=== PATIENT | female | born 1960 | race Caucasian/White ===

== ENCOUNTER 2016-12-19 13:56 | Outpatient (CLI) | payer OTHER | END 2016-12-19 13:57 | disposition home or self-care (01) | DX: D72.819 Decreased white blood cell count, unspecified (principal) ==

== ENCOUNTER 2016-12-21 14:24 | Outpatient (CLI) | payer OTHER | END 2016-12-21 14:25 | disposition home or self-care (01) | DX: D72.819 Decreased white blood cell count, unspecified (principal); E53.8 Deficiency of other specified B group vitamins ==

== ENCOUNTER 2016-12-26 10:05 | Outpatient (CLI) | payer OTHER ==
--- NOTE | 2016-12-28 14:41 | Mammography Report ---
DIGITAL SCREENING MAMMOGRAM: 12/26/2016 CLINICAL INDICATION: A 56-year-old nulliparous patient with family history of breast cancer for scre ening. COMPARISON: 09/2014, 08/2013, 03/2011, 03/2010, 03/2009, 02/2008. TECHNIQUE: Routine CC and MLO projections were obtained of the breasts. FINDINGS: The breasts again demonstrate scattered fibroglandular densities bilaterally. No suspicio us masses, clustered microcalcifications, or regions of architectural distortion are identified. IMPRESSION: BENIGN FINDINGS. RECOMMENDATION: Routine annual screening unless otherwise clinically indicated. BI-RADS category 2, benign findings. STANDARD QUALIFYING STATEMENTS 1. This examination was reviewed with the aid of Computer-Aided Detection (CAD). 2. A negative or benign imaging report should not delay biopsy if clinically suspicious findings are present. Consider surgical consultation if warranted. More than 5% of cancers are not identified by i maging. 3. Dense breasts may obscure an underlying neoplasm. JOB #: [id number] EXT JOB #:[id number]
== END 2016-12-26 10:06 | disposition home or self-care (01) ==
LOC: DI 10:05
PROVIDERS: ATTEND Internal Medicine
DX: Z12.31 Encounter for screening mammogram for malignant neoplasm of breast (principal); Z80.3 Family history of malignant neoplasm of breast
CPT/HCPCS: 77067

== ENCOUNTER 2018-01-09 11:29 | Outpatient (CLI) | payer OTHER ==
--- NOTE | 2018-01-10 13:48 | Mammography Report ---
DIGITAL SCREENING MAMMOGRAM: 01/09/2018 CLINICAL INDICATION: A 57-year-old nulliparous patient with family history of breast cancer for screening. COMPARISON: 12/2016, 09/2014, 08/2013, 03/2011, 03/2010. TECHNIQUE: Routine CC and MLO projections were obtained of the breasts. FINDINGS: The breasts again demonstrate scattered fibroglandular densities bilaterally. Asymmetric parenchyma in the left outer posterior breast is stable. No suspicious masses, clustered microcalcifications, or regions of architectural distortion are identified. IMPRESSION: BENIGN FINDINGS. RECOMMENDATION: Routine annual screening unless otherwise clinically indicated. BI-RADS CATEGORY 2 - BENIGN FINDINGS. STANDARD QUALIFYING STATEMENTS: 1. This examination was reviewed with the aid of Computer-Aided Detection (CAD). 2. A negative or benign imaging report should not delay biopsy if clinically suspicious findings are present. Consider surgical consultation if warranted. More than 5% of cancers are not identified by imaging. 3. Dense breasts may obscure an underlying neoplasm. TD: 01/10/2018 13:41
== END 2018-01-09 11:30 | disposition home or self-care (01) ==
LOC: DI 11:29
PROVIDERS: ATTEND Internal Medicine
DX: Z12.31 Encounter for screening mammogram for malignant neoplasm of breast (principal); Z80.3 Family history of malignant neoplasm of breast
CPT/HCPCS: 77067

== ENCOUNTER 2019-01-31 10:53 | Outpatient (CLI) | payer OTHER ==
--- NOTE | 2019-01-31 11:40 | Mammography Report ---
Reason: ANNUAL SCREENING Procedure Date: 01/31/2019 Accession Number: [id number] / [id number] Procedure: [facility] - Screening Mammo Dig Bilat CPT Code: FULL RESULT: EXAM: Screening Mammo Dig Bilat DATE: 01/31/2019 11:22 AM CLINICAL HISTORY: Screening TECHNIQUE: (B) - Bilateral CC and MLO views were obtained. COMPARISON: 01/09/2018, 12/26/2016 PARENCHYMAL PATTERN: (A) - The breasts demonstrate scattered fibroglandular densities bilaterally. FINDINGS: There are no suspicious masses, calcifications, or areas of distortion. IMPRESSION: Negative examination. BI-RADS category 1. RECOMMENDATION: (ANNUAL) - Recommend routine annual screening mammography. BI-RADS CATEGORY: (1) - Negative. STANDARD QUALIFYING STATEMENTS: 1. This examination was not reviewed with the aid of Computer-Aided Detection (CAD). 2. A negative or benign imaging report should not preclude biopsy if clinically suspicious findings are present. 3. Dense breasts may obscure an underlying neoplasm. 4. This examination was reviewed without the aid of 3D breast imaging (tomosynthesis).
== END 2019-01-31 10:54 | disposition home or self-care (01) ==
LOC: DI 10:53
DX: Z12.31 Encounter for screening mammogram for malignant neoplasm of breast (principal)
CPT/HCPCS: 77067

== ENCOUNTER 2019-11-15 12:42 | Emergency (ER) | payer OTHER ==
[2019-11-15 12:55] VITALS: BP 152/64
--- NOTE | 2019-11-15 13:20 | ED Physician Documentation ---
History of Present Illness - Stated complaint Stated Complaint: MOUTH PX,SWELLING - Chief complaint Chief Complaint: Heent - History obtained from History obtained from: Patient - History of Present Illness Timing: How many days ago (2) Pain level max: 2 Pain level now: 2 - Additonal information Additional information: 59-year-old female states she was eating popcorn a few days ago when a kernel became lodged in her back left upper molar. No fever. No cough. States she has felt some facial swelling. She tried to see her dentist, but because of the coronavirus, he is only open 1 day/week and could not see her. She called her primary care doctor who recommended she come here for evaluation. No fevers. Nothing makes it better or worse. She states she was able to remove the kernel. Review of Systems Constitutional: denies: Fever, Chills Respiratory: denies: Cough GI: denies: Vomiting, Diarrhea Skin: denies: Rash PD PAST MEDICAL HISTORY - Past Medical History Past Medical History: No - Present Medications Home Medications: Ambulatory Orders Medication Instructions Recorded Confirmed Clindamycin HCl [Clindamycin 300MG 300 mg PO Q6H #40 capsule 11/15/19 CAP] - Allergies Allergies/Adverse Reactions: Allergies Allergy/AdvReac Type Severity Reaction Status Date / Time Penicillins Allergy Anaphylaxis Verified 11/15/19 12:50 - Living Situation Living Arrangement: reports: At home - Social History Does the pt smoke?: No Smoking Status: Never smoker Does the pt have substance abuse?: No - Family History Family history: reports: Non contributory PD ED PE NORMAL - Vitals Vital signs reviewed: Yes - General General: Alert and oriented X 3, No acute distress, Well developed/nourished - HEENT HEENT: Moist mucous membranes, Other (Mild swelling to the upper left gingiva. No abscess. No foreign body visible. Otherwise normal exam of the oropharynx and cheek.) - Neck Neck: Supple, no meningeal sign - Derm Derm: Warm and dry - Neuro Neuro: Alert and oriented X 3 Results - Vitals Vitals: Vital Signs - 24 hr 11/15/19 12:51 Temperature 36.8 C Heart Rate 69 Respiratory 14 Rate Blood Pressure 152/64 H O2 Saturation 98 Oxygen O2 Source Room air PD MEDICAL DECISION MAKING - ED course Complexity details: considered differential, d/w patient ED course: Patient with what appears to be dental caries. We will start her on antibiotics. We will have her follow-up with her dentist for further care. She is penicillin allergic, causes a rash. Patient counseled regarding signs and symptoms for which I believe and urgent re-evaluation would be necessary. Patient with good understanding of and agreement to plan and is comfortable going home at this time This document was made in part using voice recognition software. While efforts are made to proofread this document, sound alike and grammatical errors may occur. Departure - Departure Disposition: 01 Home, Self Care Clinical Impression: Pain due to dental caries Condition: Good Instructions: ED Tooth Pain Follow-Up: your,dentist within 1 week [Other] Prescriptions: Clindamycin HCl [Clindamycin 300MG CAP] 300 mg PO Q6H #40 capsule Comments: Take all antibiotics until gone. Return if you worsen. Follow-up with your dentist for further care. You can also do salt water rinses at home, this will help with swelling.
== END 2019-11-15 13:22 | disposition home or self-care (01) ==
LOC: ED 12:42
DX: K02.9 Dental caries, unspecified (principal)
CPT/HCPCS: 99282; 99284

== ENCOUNTER 2019-12-06 19:40 | Emergency (ER) | payer OTHER ==
[2019-12-06 19:48] VITALS: BP 142/89
--- NOTE | 2019-12-06 20:11 | ED Physician Documentation ---
PD HPI Fall - Stated complaint Stated Complaint: NOSE INJ - Chief complaint Chief Complaint: Heent - History obtained from History obtained from: Patient (Her dog ran into her and she basically face planted. No loss of consciousness or headache. Only pain is her nose and she has a visible deformity there.) Review of Systems Constitutional: reports: Reviewed and negative Nose: denies: Rhinorrhea / runny nose, Epistaxis Cardiac: reports: Reviewed and negative PD PAST MEDICAL HISTORY - Present Medications Home Medications: Ambulatory Orders Medication Instructions Recorded Confirmed Clindamycin HCl [Clindamycin 300MG 300 mg PO Q6H #40 capsule 11/15/19 CAP] Cephalexin [Keflex] 500 mg PO Q6H #28 capsule 12/06/19 - Allergies Allergies/Adverse Reactions: Allergies Allergy/AdvReac Type Severity Reaction Status Date / Time Penicillins Allergy Anaphylaxis Verified 12/06/19 19:48 - Social History Does the pt smoke?: No Smoking Status: Never smoker Does the pt have substance abuse?: No PD ED PE NORMAL - Vitals Vital signs reviewed: Yes - General General: Alert and oriented X 3, No acute distress - HEENT HEENT: Other (She has an obvious nasal fracture with leftward deviation. No septal hematoma. Septum appears fairly normal. No other facial bony tenderness. No evidence of entrapment.) - Neck Neck: Supple, no meningeal sign, No bony TTP - Neuro Neuro: Alert and oriented X 3, Normal speech Results - Vitals Vitals: Vital Signs - 24 hr 12/06/19 19:44 Temperature 36.5 C Heart Rate 70 Respiratory 18 Rate Blood Pressure 142/89 H O2 Saturation 97 Oxygen O2 Source Room air Procedures - Reduction Body part reduced: Other (nasal) Fracture or dislocation: Fracture dislocation Anesthesia: Other (none) Reduction aftercare: Alignment improved PD MEDICAL DECISION MAKING - ED course ED course: On initial evaluation I recommended CT imaging and urgent referral to [facility] for f ixation. Patient refused. She wanted to take much more conservative course including having me reduce the nasal fracture. I discussed with her that I have never in my experience reduce the nasal fracture. And this was no longer considered standard of care for emergency physicians. She was insistent. Did not want CT imaging, and did not want to follow-up for this. A manual reduction of the nasal nose was done with visible central alignment and she tolerated this well and then 4.5 cm anterior Rhino Rocket's were inserted on either side and inflated. Departure - Departure Disposition: 01 Home, Self Care Clinical Impression: Nasal fracture Qualifiers: Encounter type: initial encounter Fracture type: closed Qualified Code(s): S02.2XXA - Fracture of nasal bones, initial encounter for closed fracture Condition: Good Record reviewed to determine appropriate education?: Yes Instructions: ED Fx Nasal Conf W X Ray Follow-Up: Elieser Lopez DDS [Provider Admit Priv/Credential] - Prescriptions: Cephalexin [Keflex] 500 mg PO Q6H #28 capsule Comments: Ideally should follow-up with the facial surgeon on Sunday, and you will need the packing removed in 5+ days. Return for new or worsening symptoms.
[2019-12-06] MEDS: cephALEXin 250 MG CAPSULE PO STA (20:15)
== END 2019-12-06 20:26 | disposition home or self-care (01) ==
LOC: ED 19:40
DX: S02.2XXA Fracture of nasal bones, initial encounter for closed fracture (principal); W54.1XXA Struck by dog, initial encounter; W18.39XA Other fall on same level, initial encounter
CPT/HCPCS: 99282; 99284; A9270

== ENCOUNTER 2020-06-09 16:06 | Emergency (ER) | payer OTHER ==
--- NOTE | 2020-06-09 16:30 | ED Physician Documentation ---
PD HPI UPPER EXT INJURY - Stated complaint Stated Complaint: RT HAND INJ - Chief complaint Chief Complaint: Ext Problem - History obtained from History obtained from: Patient - Additonal information Additional information: Without specific injury of over about 4 days she has developed worsening right hand pain that seems focused over the fifth MCP with increasing swelling of that area. No fevers or chills. Review of Systems Ten Systems: 10 systems reviewed and negative Constitutional: reports: Reviewed and negative Nose: reports: Reviewed and negative Throat: reports: Reviewed and negative Cardiac: reports: Reviewed and negative PD PAST MEDICAL HISTORY - Present Medications Home Medications: Ambulatory Orders Medication Instructions Recorded Confirmed Clindamycin HCl [Clindamycin 300MG 300 mg PO Q6H #40 capsule 11/15/19 CAP] Cephalexin [Keflex] 500 mg PO Q6H #28 capsule 12/06/19 Cephalexin [Keflex] 500 mg PO Q6H #28 capsule 06/09/20 - Allergies Allergies/Adverse Reactions: Allergies Allergy/AdvReac Type Severity Reaction Status Date / Time Penicillins Allergy Anaphylaxis Verified 12/06/19 19:48 - Social History Does the pt smoke?: No Smoking Status: Never smoker Does the pt have substance abuse?: No PD ED PE NORMAL - Vitals Vital signs reviewed: Yes - General General: Alert and oriented X 3, No acute distress - Extremities Extremities: Other (Significant tenderness and slight warmth around the fifth MCP, both dorsally and on the palmar side. She is holding it slightly flexed and the fourth and fifth digits are swollen, fifth worse than fourth.) - Neuro Neuro: Alert and oriented X 3, Normal speech Results - Vitals Vitals: Vital Signs - 24 hr 06/09/20 06/09/20 16:10 17:40 Temperature 36.6 C Heart Rate 63 72 Respiratory 18 14 Rate Blood Pressure 150/91 H 148/88 H O2 Saturation 100 100 Oxygen O2 Source Room air - Labs Labs: Laboratory Tests 06/09/20 06/09/20 06/09/20 16:54 16:54 16:54 WBC 4.5 L RBC 4.12 L Hgb 13.6 Hct 41.6 MCV 101.0 H MCH 33.0 H MCHC 32.7 RDW 12.2 Plt Count 171 MPV 9.3 Neut # (Auto) 2.9 Lymph # (Auto) 1.0 L Beaver # (Auto) 0.5 Eos # (Auto) 0.1 Baso # (Auto) 0.0 Absolute Nucleated RBC 0.00 Nucleated RBC % 0.0 ESR 5 Sodium 135 Potassium 4.0 Chloride 99 L Carbon Dioxide 25 Anion Gap 11.0 BUN 18 Creatinine 0.6 Estimated GFR (MDRD) 102 Glucose 104 H Calcium 9.6 PD MEDICAL DECISION MAKING - ED course ED course: 59-year-old woman with atraumatic right hand pain, the examination is concerning for an early case of flexor tenosynovitis. Case was discussed by phone with the orthopedist on-call, Dr. Fly Roberto. For per my description he felt it was probably fairly early and recommended antibiotics and he will see her tomorrow morning in the office. Departure - Departure Disposition: 01 Home, Self Care Clinical Impression: Suppurative tenosynovitis of flexor tendon of right hand Condition: Good Record reviewed to determine appropriate education?: Yes Instructions: Infectious Tenosynovitis Follow-Up: Fly Recio MD [Provider Admit Priv/Credential] - Tomorrow (CALL AT 8AM) Prescriptions: Cephalexin [Keflex] 500 mg PO Q6H #28 capsule Comments: As discussed, the examination today is concerning for an early case of tenosynovitis of the hand. You should return immediately if worsening, but the orthopedic surgeon would like to see you tomorrow in follow-up for recheck, call his office listed on this form at 8 AM. Elevate is much as possible. Discharge Date/Time: 06/09/20 17:40
--- NOTE | 2020-06-09 16:49 | XRAY Report ---
PROCEDURE: Hand 3 View RT INDICATIONS: hand pain TECHNIQUE: 3 views of the hand(s) acquired. COMPARISON: None FINDINGS: Bones: No fractures or dislocations. No suspicious bony lesions. Soft tissues: No suspicious soft tissue calcifications. IMPRESSION: No gross acute right hand fracture or dislocation. Reviewed by: Anthony Hidalgo MD on 06/09/2020 3:48 PM [facility] Approved by: Anthony Hidalgo MD on 06/09/2020 3:48 PM [facility]DT Station ID: [id number]
[2020-06-09 16:59] LABS: BASOPHILS % (AUTO) 0.7 %; EOSINOPHILS # (AUTO) 0.1 10^3/uL (0.0-0.7); EOSINOPHILS % (AUTO) 1.1 %; HGB - HEMOGLOBIN 13.6 g/dL (12.0-16.0); LYMPHOCYTES % (AUTO) 21.5 %; MEAN CORPUSCULAR HGB CONC 32.7 g/dL (32.0-36.0); MEAN PLATELET VOLUME 9.3 fL (7.9-10.8); MONOCYTES # (AUTO) 0.5 10^3/uL (0.0-1.0); MONOCYTES % (AUTO) 11.5 %; NEUTROPHILS # (AUTO) 2.9 10^3/uL (1.5-6.6); PLT - PLATELET COUNT 171 10^3/uL (130-450); RED BLOOD COUNT 4.12 10^6/uL (4.20-5.40); RED CELL DISTRIBUTION WIDTH 12.2 % (12.0-15.0); WHITE BLOOD COUNT 4.5 x10^3/uL (4.8-10.8)
[2020-06-09 17:14] LABS: BUN - BLOOD UREA NITROGEN 18 mg/dL (6-20); CALCIUM 9.6 mg/dL (8.5-10.3); CARBON DIOXIDE - CO2 25 mmol/L (21-32); CHLORIDE 99 mmol/L (101-111); CREATININE 0.6 mg/dL (0.4-1.0); GLUCOSE 104 mg/dL (70-100); SODIUM 135 mmol/L (135-145)
[2020-06-09] MEDS ORDERED: ceFAZolin 1 GM VIAL IM STA (17:24)
[2020-06-09 17:40] VITALS: BP 148/88
[2020-06-09 19:33] LABS: CRP - C-REACTIVE PROTEIN < 1.0 mg/dL (0-1.0)
== END 2020-06-09 17:40 | disposition home or self-care (01) ==
LOC: ED 16:06
DX: M65.841 Other synovitis and tenosynovitis, right hand (principal)
CPT/HCPCS: 36415; 80048; 85025; 85651; 86140; 96372; 99282; 99284

== ENCOUNTER 2020-06-11 13:44 | Outpatient (CLI) | payer OTHER | END 2020-06-11 13:45 | disposition EMS.NT | LOC: EMS 13:44 | PROVIDERS: ATTEND Surgery | DX: R20.2 Paresthesia of skin (principal); R22.0 Localized swelling, mass and lump, head ==

== ENCOUNTER 2020-06-11 14:02 | Emergency (ER) | payer OTHER ==
[2020-06-11] MEDS ORDERED: predniSONE 20 MG TABLET PO STA (14:12)
--- NOTE | 2020-06-11 15:57 | ED Physician Documentation ---
History of Present Illness - Stated complaint Stated Complaint: TOUNGUE SWELLING - Chief complaint Chief Complaint: Allergic Rx - History obtained from History obtained from: Patient - History of Present Illness Timing: Today Pain level max: 0 Pain level now: 0 - Additonal information Additional information: Patient is a 59-year-old female who presents to the emergency department with tongue swelling tonight. She is currently on Keflex for tenosynovitis of the right hand, states it has significantly decreased in size and appears to be improving. She is also on lisinopril. No difficulty swallowing or speaking. No rash. No itching. She took Benadryl prior to arrival Review of Systems Constitutional: denies: Fever, Chills Throat: denies: Sore throat Respiratory: denies: Cough GI: denies: Nausea, Vomiting, Diarrhea PD PAST MEDICAL HISTORY - Past Medical History Past Medical History: Yes Cardiovascular: Hypertension - Past Surgical History Past Surgical History: Yes HEENT: Tonsil/Adenoidectomy - Present Medications Home Medications: Ambulatory Orders Medication Instructions Recorded Confirmed Cephalexin [Keflex] 500 mg PO Q6H #28 capsule 12/06/19 Clindamycin HCl [Clindamycin 300MG 300 mg PO Q6H #28 capsule 06/11/20 CAP] predniSONE [Prednisone] 40 mg PO DAILY #10 tablet 06/11/20 - Allergies Allergies/Adverse Reactions: Allergies Allergy/AdvReac Type Severity Reaction Status Date / Time Penicillins Allergy Anaphylaxis Verified 12/06/19 19:48 - Social History Does the pt smoke?: No Smoking Status: Never smoker Does the pt drink ETOH?: Yes Does the pt have substance abuse?: No - Immunizations Immunizations are current?: Yes - POLST Patient has POLST: No PD ED PE NORMAL - Vitals Vital signs reviewed: Yes - General General: Alert and oriented X 3, No acute distress - HEENT HEENT: Moist mucous membranes, Other (Normal phonation. No trismus. Mild swelling to the right half of the tongue. No swelling of the lips. No stridor.) - Neck Neck: Supple, no meningeal sign - Cardiac Cardiac: RRR - Respiratory Respiratory: No respiratory distress, Clear bilaterally - Abdomen Abdomen: Soft, Non tender, Non distended - Derm Derm: Warm and dry, No rash - Extremities Extremities: No edema - Neuro Neuro: Alert and oriented X 3 - Psych Psych: Normal mood, Normal affect Results - Vitals Vitals: Vital Signs - 24 hr 06/11/20 06/11/20 06/11/20 14:07 14:40 15:13 Temperature 36.0 C L 36.3 C L Heart Rate 63 61 63 Respiratory 16 16 17 Rate Blood Pressure 159/83 H 155/86 H 143/86 H O2 Saturation 99 97 97 06/11/20 16:02 Temperature Heart Rate 75 Respiratory 16 Rate Blood Pressure 149/97 H O2 Saturation 100 Oxygen O2 Source Room air PD MEDICAL DECISION MAKING - ED course Complexity details: re-evaluated patient, considered differential, d/w patient, d/w family ED course: Patient with what appears to be angioedema, likely secondary to lisinopril use, but could be due to Keflex. Swelling nearly resolved in the emergency department after prednisone administration. Will keep her on prednisone at home, stop the lisinopril and change the Keflex to a different antibiotic. Her hand appears to be significantly improved as well. Minimal swelling. Using the hand freely. I did recommend that we remove her rings from the right hand, patient adamantly refuses this. She does understand that if the swelling worsens again, the finger could be lost due to lack of blood flow. Patient accepts this risk. Patient counseled regarding signs and symptoms for which I believe and urgent re-evaluation would be necessary. Patient with good understanding of and agreement to plan and is comfortable going home at this time This document was made in part using voice recognition software. While efforts are made to proofread this document, sound alike and grammatical errors may occur. Departure - Departure Disposition: 01 Home, Self Care Clinical Impression: Suppurative tenosynovitis of flexor tendon of right hand Angioedema Qualifiers: Encounter type: initial encounter Qualified Code(s): T78.3XXA - Angioneurotic edema, initial encounter Condition: Good Instructions: ED Angioedema Follow-Up: Felicitas Tejada ARNP [Primary Care Provider] - Within 1 week Prescriptions: Clindamycin HCl [Clindamycin 300MG CAP] 300 mg PO Q6H #28 capsule predniSONE [Prednisone] 40 mg PO DAILY #10 tablet Comments: We will have you stop the Keflex and stop your lisinopril. This is most likely related to the lisinopril, but could be related to the Keflex as well. We will start you on steroids for the next several days as well. Follow-up with your doctor for repeat evaluation within 1 week. Return if you worsen Discharge Date/Time: 06/11/20 16:05
[2020-06-11 16:03] VITALS: BP 149/97
== END 2020-06-11 16:05 | disposition home or self-care (01) ==
LOC: ED 14:02
DX: T78.3XXA Angioneurotic edema, initial encounter (principal); X58.XXXA Exposure to other specified factors, initial encounter; M65.841 Other synovitis and tenosynovitis, right hand; I10 Essential (primary) hypertension
CPT/HCPCS: 99282; 99284; J7512

== ENCOUNTER 2020-06-19 11:22 | Emergency (ER) | payer OTHER ==
[2020-06-19 11:36] VITALS: BP 158/87
--- NOTE | 2020-06-19 11:40 | ED Physician Documentation ---
PD HPI HEADACHE - Stated complaint Stated Complaint: HIGH BP - Chief complaint Chief Complaint: General - History obtained from History obtained from: Patient - History of Present Illness Timing - onset: How many days ago (5-6 days of noting Her blood pressure being elevated approximately 1 60-1 80 systolic. She had been seen for angioedema presumed related to lisinopril and has been off blood pressure medicines for 2 weeks. Noting blood pressure elevated the last week. Minimal occasional headache. Normal vision.) Timing - onset during: Light activity Timing - duration: Days (several) Timing - details: Gradual onset, Still present, Waxing and waning Worst headache ever?: No: Worst headache ever? Location: Global Quality: Other (minimal throbbinb) Associated symptoms: No: Fever, Nausea Contributing factors: Recent illness (Seen 2 weeks ago for angioedema and had her lisinopril stopped. She states her tongue in oral swelling is improved and not recurred.) Review of Systems Constitutional: denies: Fever, Chills Nose: denies: Rhinorrhea / runny nose, Congestion Throat: denies: Sore throat Respiratory: denies: Cough Neurologic: denies: Focal weakness, Numbness, Near syncope PD PAST MEDICAL HISTORY - Past Medical History Cardiovascular: Hypertension - Past Surgical History Past Surgical History: Yes HEENT: Tonsil/Adenoidectomy - Present Medications Home Medications: Ambulatory Orders Medication Instructions Recorded Confirmed amLODIPine [Norvasc] 5 mg PO DAILY #30 tablet 06/19/20 - Allergies Allergies/Adverse Reactions: Allergies Allergy/AdvReac Type Severity Reaction Status Date / Time lisinopril Allergy Edema Verified 06/19/20 11:36 Penicillins Allergy Anaphylaxis Verified 12/06/19 19:48 - Social History Does the pt smoke?: No Smoking Status: Never smoker Does the pt drink ETOH?: Yes Does the pt have substance abuse?: No - Immunizations Immunizations are current?: Yes - POLST Patient has POLST: No PD ED PE NORMAL - Vitals Vital signs reviewed: Yes - General General: Alert and oriented X 3, No acute distress, Well developed/nourished - Cardiac Cardiac: RRR, No murmur - Respiratory Respiratory: Clear bilaterally - Extremities Extremities: No edema, No calf tenderness / cord - Neuro Neuro: Alert and oriented X 3, No motor deficit, Normal speech Results - Vitals Vitals: Vital Signs - 24 hr 06/19/20 11:29 Temperature 36.7 C Heart Rate 81 Respiratory 18 Rate Blood Pressure 158/87 H O2 Saturation 100 Oxygen O2 Source Room air PD MEDICAL DECISION MAKING - ED course Complexity details: considered differential (Patient off of blood pressure medicines last 2-week and noticing her blood pressure consistently elevated 1 50-1 7 the or so. She tried to get into see her primary care but no appointment for about 3 weeks. She would like to start a different blood pressure medicine.), d/w patient Departure - Departure Disposition: Home, Self Care Clinical Impression: Hypertension Qualifiers: Hypertension type: essential hypertension Qualified Code(s): I10 - Essential (primary) hypertension Condition: Stable Record reviewed to determine appropriate education?: Yes Follow-Up: Felicitas Tejada ARNP [Primary Care Provider] - Prescriptions: amLODIPine [Norvasc] 5 mg PO DAILY #30 tablet Comments: Since you had the angioedema response to the lisinopril, I would certainly avoid any other RENE inhibitor and potentially the ARB category as well. Therefore we could start with a very low dose amlodipine which is a calcium jamie. It typically does not affect the heart rate as well. See how your blood pressure is with this. You could potentially start with a half a tablet daily for several days and then the whole tablet. Follow-up with your primary care regarding ongoing dosages. Discharge Date/Time: 06/19/20 11:56
== END 2020-06-19 11:56 | disposition home or self-care (01) ==
LOC: ED 11:22
DX: I10 Essential (primary) hypertension (principal); T46.4X5A Adverse effect of angiotensin-converting-enzyme inhibitors, initial encounter; T46.4X6A Underdosing of angiotensin-converting-enzyme inhibitors, initial encounter; Y63.6 Underdosing and nonadministration of necessary drug, medicament or biological substance
CPT/HCPCS: 99282; 99284

== ENCOUNTER 2020-07-19 14:28 | Outpatient (CLI) | payer OTHER ==
--- NOTE | 2020-07-20 14:38 | Mammography Report ---
BILATERAL DIGITAL SCREENING MAMMOGRAM 3D/2D: 07/19/2020 CLINICAL: Family history of breast cancer. Routine screening. Comparison is made to exams dated: 01/31/2019 mammogram, 01/09/2018 mammogram, 12/26/2016 mammogram, 09/25 mammogram, and 09/16/2013 mammogram - [facility]. There are scattered fibrogl andular elements in both breasts. No significant masses, calcifications, or other findings are seen in either breast. There has been no significant interval change. IMPRESSION: NEGATIVE There is no mammographic evidence of malignancy. A 1 year screening mammogram is recommended. This exam was interpreted at Station ID: [id number]. NOTE: For mammograms, a report in lay terms will be sent to the patient. Approximately 15% of breast malignancies will not be visualized mammographically. In the management of a palpable breast mass, a negative mammogram must not discourage biopsy of a clinically suspicious lesion. Electronically Signed By: Fredy rodas/gunner:07/20/2020 11:36:54 ACR BI-RADS Category 1: Negative 3341F PARENCHYMAL PATTERN: (A) - The breast(s) demonstrate(s) scattered fibroglandular densities. BI-RADS CATEGORY: (1) - 1 RECOMMENDATION: (ANNUAL) - Recommend routine annual screening mammography. [id number] 1 year screening LATERALITY: (B)
== END 2020-07-19 14:29 | disposition home or self-care (01) ==
LOC: DI.N 14:28
PROVIDERS: ATTEND Registered Nurse
DX: Z12.31 Encounter for screening mammogram for malignant neoplasm of breast (principal); Z80.3 Family history of malignant neoplasm of breast

== ENCOUNTER 2020-08-04 13:57 | Outpatient (CLI) | payer OTHER ==
--- NOTE | 2020-08-04 14:37 | XRAY Report ---
PROCEDURE: Chest 2 View X-Ray INDICATIONS: Bronchitis TECHNIQUE: 2 view(s) of the chest. COMPARISON: None. FINDINGS: Surgical changes and devices: None. Lungs and pleura: No pleural effusions or pneumothorax. Lungs are clear. Mediastinum: Mediastinal contours are normal. Heart size is normal. Bones and chest wall: No suspicious bony abnormalities. Soft tissues appear unremarkable. IMPRESSION: No acute finding. Reviewed by: Bruno Morgan MD on 08/04/2020 1:36 PM [facility] Approved by: Bruno Morgan MD on 08/04/2020 1:36 PM [facility] Station ID: [id number]
== END 2020-08-04 13:58 | disposition home or self-care (01) ==
LOC: DI.S 13:57
PROVIDERS: ATTEND Registered Nurse
DX: J20.9 Acute bronchitis, unspecified (principal)

== ENCOUNTER 2020-11-01 11:42 | Outpatient (CLI) | payer OTHER ==
--- NOTE | 2020-11-01 15:15 | XRAY Report ---
PROCEDURE: Knee 2 View BILAT INDICATIONS: KNEE PX TECHNIQUE: 2 views of the bilateral knee(s) were acquired. COMPARISON: None. FINDINGS: Bones: No fractures or dislocations. No suspicious bony lesions. There is mild to moderate bilater al medial and patellofemoral compartment narrowing. No erosions are identified. Minimal periarticular osteophytes are present, right greater than left. Soft tissues: Minimal bilateral joint effusion. No suspicious soft tissue calcifications. IMPRESSION: Medial and patellofemoral compartment narrowing suggestive early arthritis. Reviewed by: Letitia Mccann MD on 11/01/2020 3:14 PM PDT Approved by: Lettiia Mccann MD on 11/01/2020 3:14 PM PDT Station ID: [id number]
== END 2020-11-01 11:43 | disposition home or self-care (01) ==
LOC: DI.S 11:42
PROVIDERS: ATTEND Registered Nurse
DX: M17.0 Bilateral primary osteoarthritis of knee (principal)

== ENCOUNTER 2021-11-02 11:00 | Emergency (ER) | payer OTHER ==
[2021-11-02 11:08] VITALS: BP 174/88
--- NOTE | 2021-11-02 11:31 | XRAY Report ---
PROCEDURE: Wrist 4 View LT INDICATIONS: wrist injury TECHNIQUE: 4 views of the wrist were acquired. COMPARISON: None. FINDINGS: BONES: No acute, displaced fracture or dislocation. The carpal bones are normally aligned. SOFT TISSUES: No focal abnormality. IMPRESSION: 1.No acute osseous abnormality. Reviewed by: Jax Be MD on 11/02/2021 11:30 AM PDT Approved by: Jax Be MD on 11/02/2021 11:30 AM PDT Station ID: [id number]
--- NOTE | 2021-11-02 11:35 | ED Physician Documentation ---
PD HPI UPPER EXT INJURY - Stated complaint Stated Complaint: LT WRIST PX - Chief complaint Chief Complaint: Trauma Ext - History obtained from History obtained from: Patient - History of Present Illness Location: Left, Wrist Type of injury: Twist (with a pull) Where injury occurred: [place] Timing - onset: Today Timing - duration: Hours Timing - details: Abrupt onset, Still present Improved by: Rest, Immobilization Worsened by: Moving, Palpating Associated symptoms: No: Weakness, Numbness, Tingling, Swelling, Discolored Contributing factors: No: Anticoagulated Similar symptoms before: Has not had sx before Recently seen: Not recently seen - Additonal information Additional information: Previously well 61-year-old female was walking her dogs today she had a hold of the leash of 2 dogs in her left hand she went to turn around and the dog's went the opposite direction pulling her wrist the opposite direction. She has pain over the ulnar aspect of the wrist and some reduced motion secondary to the pain. She has no deformity or swelling. She has not recently been ill. Review of Systems Constitutional: denies: Fever Nose: denies: Congestion Throat: denies: Sore throat Respiratory: denies: Cough GI: denies: Vomiting : denies: Dysuria, Frequency Skin: denies: Rash Musculoskeletal: reports: Extremity pain, Joint pain. denies: Neck pain, Back pain, Extremity swelling, Joint swelling Neurologic: denies: Generalized weakness, Focal weakness, Numbness PD PAST MEDICAL HISTORY - Past Medical History Cardiovascular: Hypertension - Past Surgical History Past Surgical History: Yes HEENT: Tonsil/Adenoidectomy - Present Medications Home Medications: Ambulatory Orders Medication Instructions Recorded Confirmed amLODIPine [Norvasc] 5 mg PO DAILY #30 tablet 06/19/20 11/02/21 - Allergies Allergies/Adverse Reactions: Allergies Allergy/AdvReac Type Severity Reaction Status Date / Time COVID-19 (SARS-CoV-2) Allergy Edema Verified 11/02/21 11:32 vaccine, toni lisinopril Allergy Edema Verified 11/02/21 11:32 Penicillins Allergy Anaphylaxis Verified 11/02/21 11:32 - Social History Does the pt smoke?: No Smoking Status: Never smoker Does the pt drink ETOH?: Yes Does the pt have substance abuse?: No - Immunizations Immunizations are current?: Yes - POLST Patient has POLST: No PD ED PE NORMAL - Vitals Vital signs reviewed: Yes (Hypertensive) - General General: Alert and oriented X 3, No acute distress, Well developed/nourished - HEENT HEENT: Atraumatic, PERRL, EOMI - Neck Neck: Supple, no meningeal sign, No bony TTP - Respiratory Respiratory: No respiratory distress - Derm Derm: Normal color, Warm and dry, No rash - Extremities Extremities: No deformity, No edema, Other (There is point tenderness over the distal ulna and the corresponding carpal bones without swelling or crepitance. The patient does have a fair range of motion but with pain to the same area.) - Neuro Neuro: Alert and oriented X 3, clay products glazer 2-12 intact, No motor deficit, No sensory deficit Eye Opening: Spontaneous Motor: Obeys Commands Verbal: Oriented GCS Score: 15 - Psych Psych: Normal mood, Normal affect Results - Vitals Vitals: Vital Signs - 24 hr 11/02/21 11:05 Temperature 36.5 C Heart Rate 77 Respiratory 16 Rate Blood Pressure 174/88 H O2 Saturation 100 Oxygen O2 Source Room air - Rads (name of study) wrist Radiology: Prelim report reviewed (Impression: 1. No acute osseous abnormality.), EMP read indepedently, See rad report PD MEDICAL DECISION MAKING - ED course Complexity details: reviewed results, re-evaluated patient, considered differential, d/w patient ED course: 61-year-old female whose dogs have wrenched on her wrist does not have a fracture and she is placed into a splint for comfort. Departure - Departure Disposition: 01 Home, Self Care Clinical Impression: Left wrist sprain Qualifiers: Encounter type: initial encounter Qualified Code(s): S63.502A - Unspecified sprain of left wrist, initial encounter Condition: Stable Instructions: ED Sprain Wrist Follow-Up: Felicitas Tejada ARNP [Primary Care Provider] - Comments: [place] there is no evidence of a fracture on the x-ray of your wrist. We have placed in you into a splint for comfort and you can wear this up to 2 weeks. You can remove this in several days and check your range of motion when you are feeling comfortable and you can open a door with his hand you can take the s plint off.
== END 2021-11-02 12:09 | disposition home or self-care (01) ==
LOC: ED 11:00
DX: S63.502A Unspecified sprain of left wrist, initial encounter (principal); X50.1XXA Overexertion from prolonged static or awkward postures, initial encounter; Y93.K1 Activity, walking an animal
CPT/HCPCS: 99282; 99283

== ENCOUNTER 2021-11-10 09:31 | Outpatient (CLI) | payer OTHER ==
[2021-11-10 15:17] LABS: ALBUMIN 4.7 g/dL (3.2-5.5); ALBUMIN/GLOBULIN RATIO 1.9 (1.0-2.2); ALKALINE PHOSPHATASE 59 IU/L (42-121); ALT ALANINE AMINOTRANSFERASE 38 IU/L (10-60); AST ASPARTATE AMINOTRANSFERASE 35 IU/L (10-42); BUN - BLOOD UREA NITROGEN 15 mg/dL (6-20); CALCIUM 9.5 mg/dL (8.5-10.3); CARBON DIOXIDE - CO2 26 mmol/L (21-32); CHLORIDE 96 mmol/L (101-111); CHOL/HDL RATIO 2.5 (<4.4); CHOLESTEROL 234 mg/dL; CREATININE 0.6 mg/dL (0.4-1.0); GFR - MDRD 101 (>89); GLUCOSE 105 mg/dL (70-100); HDL CHOLESTEROL 92 mg/dL; LDL CHOLESTEROL,CALCULATED 127 mg/dL; LDL/HDL RATIO 1.4 (<4.4); SODIUM 132 mmol/L (135-145); TOTAL PROTEIN 7.2 g/dL (6.7-8.2); TRIGLYCERIDES 76 mg/dL; VLDL CHOLESTEROL 15 mg/dL
[2021-11-10 15:23] LABS: BASOPHILS % (AUTO) 0.6 %; EOSINOPHILS # (AUTO) 0.1 10^3/uL (0.0-0.7); EOSINOPHILS % (AUTO) 2.7 %; HCT - HEMATOCRIT 42.1 % (37.0-47.0); LYMPHOCYTES # (AUTO) 1.1 10^3/uL (1.5-3.5); LYMPHOCYTES % (AUTO) 33.5 %; MEAN CORPUSCULAR HEMOGLOBIN 33.3 pg (27.0-31.0); MEAN CORPUSCULAR HGB CONC 33.3 g/dL (32.0-36.0); MEAN CORPUSCULAR VOLUME 100.2 fL (81.0-99.0); MEAN PLATELET VOLUME 10.2 fL (7.9-10.8); MONOCYTES # (AUTO) 0.5 10^3/uL (0.0-1.0); MONOCYTES % (AUTO) 16.2 %; NEUTROPHILS # (AUTO) 1.5 10^3/uL (1.5-6.6); PLT - PLATELET COUNT 195 10^3/uL (130-450); WHITE BLOOD COUNT 3.3 x10^3/uL (4.8-10.8)
== END 2021-11-10 09:32 | disposition home or self-care (01) ==
LOC: LAB.S 09:31
PROVIDERS: ATTEND Registered Nurse
DX: I10 Essential (primary) hypertension (principal)
CPT/HCPCS: 36415; 80053; 80061; 83721; 85025

== ENCOUNTER 2022-03-16 09:46 | Outpatient (CLI) | payer OTHER ==
--- NOTE | 2022-03-17 14:09 | Ultrasound Report ---
LIMITED ULTRASOUND OF RIGHT BREAST: 03/16/2022 CLINICAL: Palpable right breast lump. Comparison is made to exams dated: 03/16/2022 mammogram, 07/19/2020 mammogram, 01/31/2019 mammogram, mammogram, 12/26/2016 mammogram, and 09/25/2014 mammogram - [facility]. Ultrasound of the right breast lower aspect was performed. [place] scale images of the real-time examin ation were reviewed. No significant abnormalities were seen sonographically in the right breast. Specifically, no finding to correspond to the patient's palpable abnormality in the lower outer quadrant, or the tenderness i n the 3:00 region. IMPRESSION: NEGATIVE No sonographic findings to explain right breast lump and tenderness. There is no sonographic evidence of malignancy. Return to annual mammogram screening schedule is recommended. Findings and recommendations were conveyed to the patient at time of exam. This exam was interpreted at Station ID: [id number]. Electronically Signed By: Dali ferguson/:03/16/2022 13:41:31 Ultrasound BI-RADS: 1 Negative BI-RADS CATEGORY: (1) - 1 Mammogram [id number] return to screening LATERALITY: (B)
--- NOTE | 2022-03-17 14:09 | Mammography Report ---
BILATERAL DIGITAL DIAGNOSTIC MAMMOGRAM 3D/2D: 03/16/2022 CLINICAL: Pt said had felt lump in rt breast lower/lateral quadrant but couldn't pinpoint today as sh e said she has lumpy breasts. Lt side regular screen. Comparison is made to exams dated: 07/19/2020 mammogram, 01/31/2019 mammogram, 01/09/2018 mammogram, mammogram, and 09/25/2014 mammogram - [facility]. There are scattered fibrog landular elements in both breasts. No significant masses, calcifications, or other findings are seen in either breast. Specifically, no finding to correspond to the patient's palpable abnormality. IMPRESSION: INCOMPLETE: NEEDS ADDITIONAL IMAGING EVALUATION There is no abnormality seen in the right breast to correspond with the palpable abnormality in the i nferior lateral quadrant. Ultrasound is recommended for full evaluation of this area. This was performed immediately following this exam. This exam was interpreted at Station ID: [id number]. NOTE: For mammograms, a report in lay terms will be sent to the patient. Approximately 15% of breast malignancies will not be visualized mammographically. In the management of a palpable breast mass, a negative mammogram must not discourage biopsy of a clinically suspicious lesion. Electronically Signed By: Dali ferguson/:03/16/2022 10:33:25 ACR BI-RADS Category 0: Incomplete 3340F PARENCHYMAL PATTERN: (A) - The breast(s) demonstrate(s) scattered fibroglandular densities. BI-RADS CATEGORY: (0) - 0 Ultrasound [id number] Immediate follow-up LATERALITY: (B)
== END 2022-03-16 09:47 | disposition home or self-care (01) ==
LOC: DI 09:46
PROVIDERS: ATTEND Registered Nurse
DX: N63.13 Unspecified lump in the right breast, lower outer quadrant (principal); N64.4 Mastodynia

== ENCOUNTER 2022-12-25 07:25 | Outpatient (CLI) | payer OTHER ==
[2022-12-25 14:56] LABS: BASOPHILS % (AUTO) 1.1 %; EOSINOPHILS # (AUTO) 0.1 10^3/uL (0.0-0.7); EOSINOPHILS % (AUTO) 2.8 %; HGB - HEMOGLOBIN 14.2 g/dL (12.0-16.0); LYMPHOCYTES # (AUTO) 1.3 10^3/uL (1.5-3.5); LYMPHOCYTES % (AUTO) 36.3 %; MEAN CORPUSCULAR HEMOGLOBIN 33.3 pg (27.0-31.0); MEAN CORPUSCULAR HGB CONC 32.3 g/dL (32.0-36.0); MEAN CORPUSCULAR VOLUME 103.3 fL (81.0-99.0); MEAN PLATELET VOLUME 10.4 fL (7.9-10.8); MONOCYTES # (AUTO) 0.5 10^3/uL (0.0-1.0); MONOCYTES % (AUTO) 14.1 %; NEUTROPHILS # (AUTO) 1.6 10^3/uL (1.5-6.6); NEUTROPHILS % (AUTO) 45.4 %; PLT - PLATELET COUNT 225 10^3/uL (130-450); RED BLOOD COUNT 4.26 10^6/uL (4.20-5.40); RED CELL DISTRIBUTION WIDTH 12.6 % (12.0-15.0); WHITE BLOOD COUNT 3.6 x10^3/uL (4.8-10.8)
[2022-12-25 15:45] LABS: ALBUMIN 4.3 g/dL (3.2-5.5); ALBUMIN/GLOBULIN RATIO 1.5 (1.0-2.2); ALKALINE PHOSPHATASE 61 IU/L (42-121); ALT ALANINE AMINOTRANSFERASE 30 IU/L (10-60); AST ASPARTATE AMINOTRANSFERASE 27 IU/L (10-42); BILIRUBIN,TOTAL 0.8 mg/dL (0.2-1.0); BUN - BLOOD UREA NITROGEN 11 mg/dL (6-20); CALCIUM 9.2 mg/dL (8.5-10.3); CARBON DIOXIDE - CO2 28 mmol/L (21-32); CHLORIDE 102 mmol/L (101-111); CHOL/HDL RATIO 3.1 (<4.4); CHOLESTEROL 239 mg/dL; CREATININE 0.6 mg/dL (0.4-1.0); GFR - MDRD 101 (>89); GLUCOSE 94 mg/dL (70-100); HDL CHOLESTEROL 78 mg/dL; LDL CHOLESTEROL,CALCULATED 149 mg/dL; LDL/HDL RATIO 1.9 (<4.4); POTASSIUM 4.8 mmol/L (3.5-5.0); SODIUM 139 mmol/L (135-145); TOTAL PROTEIN 7.1 g/dL (6.7-8.2); TRIGLYCERIDES 59 mg/dL; VLDL CHOLESTEROL 12 mg/dL
== END 2022-12-25 07:26 | disposition home or self-care (01) ==
LOC: LAB.S 07:25
PROVIDERS: ATTEND Registered Nurse
DX: I10 Essential (primary) hypertension (principal); Z79.899 Other long term (current) drug therapy
CPT/HCPCS: 36415; 80053; 80061; 83721; 85025

== ENCOUNTER 2023-03-27 14:03 | Outpatient (CLI) | payer OTHER ==
--- NOTE | 2023-03-28 10:35 | Mammography Report ---
BILATERAL DIGITAL SCREENING MAMMOGRAM 3D/2D: 03/27/2023 CLINICAL: Routine screening. Comparison is made to exams dated: 03/16/2022 mammogram, 07/19/2020 mammogram, 01/31/2019 mammogram, mammogram, 12/26/2016 mammogram, and 09/25/2014 mammogram - [facility]. There are scattered areas of fibroglandular density in both breasts (category b / 25%-50% glandular t issue). There is a benign focal asymmetry in the left breast. No significant masses, calcifications, or other findings are seen in either breast. There has been no significant interval change. IMPRESSION: BENIGN There is no mammographic evidence of malignancy. A 1 year screening mammogram is recommended. Based on the Tyrer Cuzick model (a risk assessment model) the patients lifetime risk is 18.0% and he r 10 year risk is 8.3%. According to the ACR, ACS, and NCCN guidelines, an annual breast MRI exam jeb ng with mammogram is recommended if the patients lifetime risk is 20% or greater. This exam was interpreted at Station ID: [id number]. NOTE: For mammograms, a report in lay terms will be sent to the patient. Approximately 15% of breast malignancies will not be visualized mammographically. In the management of a palpable breast mass, a negative mammogram must not discourage biopsy of a clinically suspicious lesion. Electronically Signed By: Luis short/gunner:03/27/2023 21:03:04 letter sent: No_Letter ACR BI-RADS Category 2: Benign Finding(s) 3342F PARENCHYMAL PATTERN: (A) - The breast(s) demonstrate(s) scattered fibroglandular densities. BI-RADS CATEGORY: (2) - 2 Mammogram [id number] 1 year screening LATERALITY: (B)
== END 2023-03-27 14:04 | disposition home or self-care (01) ==
LOC: DI 14:03
PROVIDERS: ATTEND Registered Nurse
DX: Z12.31 Encounter for screening mammogram for malignant neoplasm of breast (principal)

== ENCOUNTER 2023-08-30 08:00 | Outpatient (CLI) | payer OTHER ==
--- NOTE | 2023-08-30 13:58 | XRAY Report ---
PROCEDURE: Shoulder 2+V RT INDICATIONS: RIGHT SHOULDER SPRAIN TECHNIQUE: 3 views of the shoulder were acquired. COMPARISON: None. FINDINGS: Bones: No fractures or dislocations. No suspicious bony lesions. Visualized ribs appear intact. Soft tissues: No suspicious soft tissue calcifications. The visualized lungs are within normal limi ts. IMPRESSION: No acute fracture. No osseous lesion. If symptoms and/or clinical suspicion for patholog y continue, further assessment with repeat plain films, or advanced imaging (e.g., CT, MRI, or bone s can) is recommended for further assessment. Reviewed by: Sandy Warren MD on 08/30/2023 1:57 PM PST Approved by: Sandy Warren MD on 08/30/2023 1:57 PM PST Station ID: [id number]
== END 2023-08-30 23:59 | disposition home or self-care (01) ==
LOC: DI.S 08:00
PROVIDERS: ATTEND Physician Assistant Medical
DX: S43.491A Other sprain of right shoulder joint, initial encounter (principal)

== ENCOUNTER 2023-12-31 09:05 | Outpatient (CLI) | payer OTHER ==
[2023-12-31 14:34] LABS: BASOPHILS % (AUTO) 0.5 %; EOSINOPHILS # (AUTO) 0.1 10^3/uL (0.0-0.7); EOSINOPHILS % (AUTO) 3.2 %; HCT - HEMATOCRIT 43.4 % (37.0-47.0); HGB - HEMOGLOBIN 14.1 g/dL (12.0-16.0); LYMPHOCYTES # (AUTO) 1.4 10^3/uL (1.5-3.5); LYMPHOCYTES % (AUTO) 32.8 %; MEAN CORPUSCULAR HEMOGLOBIN 33.1 pg (27.0-31.0); MEAN CORPUSCULAR HGB CONC 32.5 g/dL (32.0-36.0); MEAN CORPUSCULAR VOLUME 101.9 fL (81.0-99.0); MEAN PLATELET VOLUME 10.5 fL (7.9-10.8); MONOCYTES # (AUTO) 0.5 10^3/uL (0.0-1.0); MONOCYTES % (AUTO) 11.5 %; NEUTROPHILS # (AUTO) 2.2 10^3/uL (1.5-6.6); NEUTROPHILS % (AUTO) 51.8 %; PLT - PLATELET COUNT 210 10^3/uL (130-450); RED BLOOD COUNT 4.26 10^6/uL (4.20-5.40); RED CELL DISTRIBUTION WIDTH 12.4 % (12.0-15.0); WHITE BLOOD COUNT 4.3 x10^3/uL (4.8-10.8)
[2023-12-31 14:56] LABS: ALBUMIN 4.7 g/dL (3.2-5.5); ALBUMIN/GLOBULIN RATIO 1.7 (1.0-2.2); ALKALINE PHOSPHATASE 61 IU/L (42-121); ALT ALANINE AMINOTRANSFERASE 28 IU/L (10-60); AST ASPARTATE AMINOTRANSFERASE 24 IU/L (10-42); BILIRUBIN,TOTAL 0.6 mg/dL (0.2-1.0); BUN - BLOOD UREA NITROGEN 12 mg/dL (6-20); CALCIUM 9.9 mg/dL (8.5-10.3); CARBON DIOXIDE - CO2 28 mmol/L (21-32); CHLORIDE 102 mmol/L (101-111); CHOL/HDL RATIO 2.6 (<4.4); CHOLESTEROL 214 mg/dL; CREATININE 0.6 mg/dL (0.6-1.3); GFR - MDRD 101 (>89); GLUCOSE 87 mg/dL (74-104); HDL CHOLESTEROL 82 mg/dL; LDL CHOLESTEROL,CALCULATED 114 mg/dL; LDL/HDL RATIO 1.4 (<4.4); POTASSIUM 4.2 mmol/L (3.5-4.5); SODIUM 137 mmol/L (135-145); TOTAL PROTEIN 7.4 g/dL (6.4-8.9); TRIGLYCERIDES 88 mg/dL (48-352); VLDL CHOLESTEROL 18 mg/dL
[2023-12-31 15:09] LABS: THYROID STIMULATING HORMONE 2.22 uIU/mL (0.34-5.60)
== END 2023-12-31 09:06 | disposition home or self-care (01) ==
LOC: LAB.S 09:05
PROVIDERS: ATTEND Registered Nurse
DX: Z79.899 Other long term (current) drug therapy (principal); Z13.220 Encounter for screening for lipoid disorders; Z13.29 Encounter for screening for other suspected endocrine disorder; Z13.228 Encounter for screening for other metabolic disorders; Z13.0 Encounter for screening for diseases of the blood and blood-forming organs and certain disorders involving the immune mechanism
CPT/HCPCS: 36415; 80053; 80061; 83721; 84443; 85025

== ENCOUNTER 2024-04-10 14:30 | Outpatient (CLI) | payer OTHER ==
--- NOTE | 2024-04-11 15:33 | Mammography Report ---
BILATERAL DIGITAL SCREENING MAMMOGRAM 3D/2D: 04/10/2024 CLINICAL: Routine screening. Family history of breast cancer. Comparison is made to exams dated: 03/27/2023 mammogram, 03/16/2022 mammogram, 07/19/2020 mammogram, mammogram, 01/09/2018 mammogram, and 12/26/2016 mammogram - [facility]. There are scattered areas of fibroglandular density in both breasts (category b / 25%-50% glandular t issue). There is a benign focal asymmetry in the left breast. No significant masses, calcifications, or other findings are seen in either breast. There has been no significant interval change. IMPRESSION: BENIGN There is no mammographic evidence of malignancy. A 1 year screening mammogram is recommended. Based on the Tyrer Cuzick model (a risk assessment model) the patient's lifetime risk is 17.5% and he r 10 year risk is 8.3%. According to the ACR, ACS, and NCCN guidelines, an annual breast MRI exam jeb ng with mammogram is recommended if the patient's lifetime risk is 20% or greater. This exam was interpreted at Station ID: [id number]. NOTE: For mammograms, a report in lay terms will be sent to the patient. Approximately 15% of breast malignancies will not be visualized mammographically. In the management of a palpable breast mass, a negative mammogram must not discourage biopsy of a clinically suspicious lesion. Electronically Signed By: Dali ferguson/gunner:04/10/2024 15:38:46 letter sent: No_Letter ACR BI-RADS Category 2: Benign Finding(s) 3342F PARENCHYMAL PATTERN: (A) - The breast(s) demonstrate(s) scattered fibroglandular densities. BI-RADS CATEGORY: (2) - 2 RECOMMENDATION: (ANNUAL) - Recommend routine annual screening mammography. [id number] 1 year screening LATERALITY: (B)
== END 2024-04-10 14:31 | disposition home or self-care (01) ==
LOC: DI 14:30
PROVIDERS: ATTEND Registered Nurse
DX: Z12.31 Encounter for screening mammogram for malignant neoplasm of breast (principal); R92.323 Mammographic fibroglandular density, bilateral breasts